=== PATIENT | female | born 1985 | race Caucasian/White ===

== ENCOUNTER → 2018-01-19 15:34 | Outpatient (REF) | payer OTHER, SELFPAY ==
[2018-01-19 18:25] LABS: Basophils % 0.3 % (0.1-2.0); Eosinophils # 0.1 K/mm3 (0.0-0.4); Eosinophils % 0.9 % (0.1-12.0); Hemoglobin 12.9 g/dL (12.2-16.2); Lymphocytes # 2.3 K/mm3 (0.7-4.5); Lymphocytes % 23.8 K/mm3 (10-50); Mean Corpuscular HGB Conc 31.4 g/dL (31.8-35.4); Mean Corpuscular Hemoglobin 28.5 pg (27.0-31.2); Mean Corpuscular Volume 90.7 fl (81-99); Mean Platelet Volume 8.4 fl (7.4-10.4); Monocytes # 0.5 K/mm3 (0.1-1.0); Monocytes % 5.1 % (1.7-9.3); Neutrophils # 6.6 K/mm3 (1.8-7.8); Neutrophils % 69.9 % (37.0-80.0); Platelet Count 277 K/mm3 (142-424); Red Blood Count 4.51 M/mm3 (4.20-5.40); Red Cell Distribution Width 13.5 % (11.5-17.5); White Blood Count 9.5 K/mm3 (4.8-10.8)
[2018-01-21 16:51] LABS: Peripheral Smear Review Scanned Result
[2018-01-21 19:23] LABS: EBV Ab VCA, IgM <36.0 U/mL (0.0-35.9); EBV Nuclear Antigen Ab, IgG 46.6 U/mL (0.0-17.9)
== END ==
LOC: LAB 15:34
PROVIDERS: Visit Provider Physician Assistant
DX: R53.83 Other fatigue (principal); G62.9 Polyneuropathy, unspecified; R59.0 Localized enlarged lymph nodes
CPT/HCPCS: 85025; 86664; 86665

== ENCOUNTER → 2018-09-02 19:35 | Outpatient (CLI) | payer OTHER, SELFPAY ==
[2018-09-02 20:34] LABS: Amphetamine/Metha Screen,Urine Negative ng/mL (<1000); Barbiturates Screen,Urine Negative ng/mL (<200); Benzodiazepines Screen,Urine Negative ng/mL (<200); Cannabinoid Screen,Urine Negative ng/mL (<50); Cocaine Screen,Urine Negative ng/mL (<300); Methadone Screen,Urine Negative ng/mL (<300); Opiate Screen,Urine Positive ng/mL (<300); Phencyclidine Screen,Urine Negative ng/mL (<25)
== END ==
PROVIDERS: Visit Provider Nurse Practitioner Family
DX: Z79.899 Other long term (current) drug therapy (principal)
CPT/HCPCS: 80305

== ENCOUNTER → 2018-11-28 14:58 | Outpatient (CLI) | payer OTHER, SELFPAY ==
[2018-11-28 17:00] LABS: Amphetamine/Metha Screen,Urine Negative ng/mL (<1000); Barbiturates Screen,Urine Negative ng/mL (<200); Benzodiazepines Screen,Urine Negative ng/mL (<200); Cannabinoid Screen,Urine Negative ng/mL (<50); Cocaine Screen,Urine Negative ng/mL (<300); Methadone Screen,Urine Negative ng/mL (<300); Opiate Screen,Urine Negative ng/mL (<300); Phencyclidine Screen,Urine Negative ng/mL (<25)
== END ==
LOC: LAB 14:58 → LAB.DROPOF 15:01
PROVIDERS: Visit Provider Nurse Practitioner Family
DX: Z79.899 Other long term (current) drug therapy (principal)
CPT/HCPCS: 80305

== ENCOUNTER → 2019-02-13 17:21 | Outpatient (CLI) | payer OTHER, SELFPAY ==
[2019-02-13 18:42] LABS: Amphetamine/Metha Screen,Urine Negative ng/mL (<1000); Barbiturates Screen,Urine Negative ng/mL (<200); Benzodiazepines Screen,Urine Negative ng/mL (<200); Cannabinoid Screen,Urine Negative ng/mL (<50); Cocaine Screen,Urine Negative ng/mL (<300); Methadone Screen,Urine Negative ng/mL (<300); Opiate Screen,Urine Negative ng/mL (<300); Phencyclidine Screen,Urine Negative ng/mL (<25)
[2019-02-13 18:59] LABS: Alanine Aminotransferase 34 U/L (12-78); Albumin Level 3.6 gm/dL (3.4-5.0); Albumin/Globulin Ratio 1.1 (1.1-1.8); Alkaline Phosphatase 73 U/L (46-116); Anion Gap 13.4 mEq/L (5-15); Aspartate Amino Transferase 18 U/L (15-37); Bilirubin,Total 0.4 mg/dL (0.2-1.0); Blood Urea Nitrogen 9 mg/dL (7-18); Carbon Dioxide 28 mmol/L (21.0-32.0); Chloride 104 mmol/L (98-107); Chol/HDL Ratio 4.1 (1-3.5); Cholesterol 183 mg/dL (140-200); Creatinine,Serum 0.55 mg/dL (0.55-1.02); Estimated Glomerular Filt Rate 127 ml/min (>60); GFR (African American) 154 ML/MIN (>60); Globulin 3.3 gm/dl (1.3-3.2); Glucose 73 mg/dL (74-106); HDL Cholesterol 45 mg/dL (29-89); LDL Cholesterol 125 mg/dL (0-130); Potassium 4.4 mmoL/L (3.5-5.1); Sodium 141 mmol/L (136-145); Thyroid Stimulating Hormone 0.78 uIU/ml (0.358-3.740); Total Protein,Serum 6.9 gm/dL (6.4-8.2); Triglycerides 66 mg/dL (30-200); VLDL Cholesterol 13 mg/dL (0-40)
[2019-02-13 19:00] LABS: Basophils % 0.5 % (0.1-2.0); Eosinophils # 0.1 K/mm3 (0.0-0.4); Eosinophils % 0.8 % (0.1-12.0); Hematocrit 42.9 % (37.0-47.0); Lymphocytes # 2.6 K/mm3 (0.7-4.5); Lymphocytes % 33.1 % (10-50); Mean Corpuscular HGB Conc 30.4 g/dL (31.8-35.4); Mean Corpuscular Hemoglobin 27.8 pg (27.0-31.2); Mean Corpuscular Volume 91.6 fl (81-99); Mean Platelet Volume 9.1 fl (7.4-10.4); Monocytes # 0.4 K/mm3 (0.1-1.0); Monocytes % 4.7 % (1.7-9.3); Neutrophils # 4.7 K/mm3 (1.8-7.8); Platelet Count 315 K/mm3 (142-424); Red Blood Count 4.68 M/mm3 (4.20-5.40); Red Cell Distribution Width 14.2 % (11.5-17.5); White Blood Count 7.8 K/mm3 (4.8-10.8)
[2019-02-15 17:47] LABS: Vitamin D 25 Hydroxy 33.4 ng/mL (30.0-100.0)
== END ==
PROVIDERS: Visit Provider Nurse Practitioner Family
DX: Z79.899 Other long term (current) drug therapy (principal); G62.9 Polyneuropathy, unspecified; N39.0 Urinary tract infection, site not specified
CPT/HCPCS: 80053; 80061; 80305; 82652; 84436; 84443; 85025; 87086

== ENCOUNTER → 2020-04-03 11:37 | Outpatient (CLI) | payer OTHER, SELFPAY ==
--- NOTE | 2020-04-03 11:44 | XR_ITS ---
PROCEDURE: XR WRIST RT MIN 3V CLINICAL INDICATION: right wrist pain COMPARISON: No exams were available for comparison FINDINGS: No fracture or dislocation. No lytic or blastic change. There is normal mineralization. The joint spaces are well-preserved. No significant degenerative/arthritic changes. No erosive changes evident. Other findings:None. IMPRESSION: No acute findings. Dictated b Dontrell Bess MD 04/03/2020 13:40 Dontrell Bess MD in [place] 04/03/2020 13:40
== END ==
PROVIDERS: PCP Emergency Medicine; Visit Provider Physician Assistant
DX: M25.531 Pain in right wrist (principal)
CPT/HCPCS: 73110

== ENCOUNTER → 2020-04-19 14:45 | Outpatient (CLI) | payer OTHER, SELFPAY ==
--- NOTE | 2020-04-19 14:45 | MR_ITS ---
PROCEDURE: MR WRIST RT WO CON CLINICAL INDICATION: right wrist pain PT. C/P LATERAL RT WRIST PAIN AND EDEMA WITH NO KNOWN INJURY OR TRAUMA. PRIOR RT WRIST X-RAY 04/03/20 COMPARISON: DX XR WRIST RT MIN 3V from 04/03/2020 TECHNIQUE: Routine multiplanar multi echo sequences are performed without gadolinium enhancement. FINDINGS: No abnormal bone marrow signal intensity. No fracture or bone bruise. No bony destructive process. There is normal alignment. No abnormal fluid collections. No obvious ligamentous or tendon abnormalities. Ligamentous abnormalities are not well delineated without intra-articular contrast. No significant degenerative change. No soft tissue masses. IMPRESSION: Unremarkable MRI of the right wrist Dictated by: Dontrell Bess MD 04/22/2020 08:47 Dontrell Bess MD in [facility] 04/22/2020 08:47
== END ==
PROVIDERS: PCP Emergency Medicine; Visit Provider Physician Assistant
DX: M25.531 Pain in right wrist (principal)
CPT/HCPCS: 73221

== ENCOUNTER → 2020-07-03 16:04 | Outpatient (CLI) | payer OTHER, SELFPAY ==
[2020-07-03 17:16] LABS: Basophils % 0.2 % (0.1-2.0); Eosinophils # 0.1 K/mm3 (0.0-0.4); Eosinophils % 0.8 % (0.1-12.0); Hematocrit 40.2 % (37.0-47.0); Hemoglobin 12.2 g/dL (12.2-16.2); Lymphocytes % 34.6 % (10-50); Mean Corpuscular HGB Conc 30.3 g/dL (31.8-35.4); Mean Corpuscular Hemoglobin 27.9 pg (27.0-31.2); Mean Corpuscular Volume 91.8 fl (81-99); Mean Platelet Volume 9.3 fl (7.4-10.4); Monocytes # 0.5 K/mm3 (0.1-1.0); Monocytes % 5.4 % (1.7-9.3); Neutrophils # 5.2 K/mm3 (1.8-7.8); Platelet Count 248 K/mm3 (142-424); Red Blood Count 4.38 M/mm3 (4.20-5.40); Red Cell Distribution Width 13.5 % (11.5-17.5); White Blood Count 8.8 K/mm3 (4.8-10.8)
[2020-07-03 17:24] LABS: Alanine Aminotransferase 20 U/L (12-78); Albumin Level 3.7 g/dl (3.5-5.0); Albumin/Globulin Ratio 1.3 (1.1-1.8); Alkaline Phosphatase 61 U/L (38-126); Anion Gap 9.6 mEq/L (5-15); Aspartate Amino Transferase 25 U/L (14-36); Bilirubin,Total 0.3 mg/dl (0.2-1.3); Blood Urea Nitrogen 10 mg/dl (7-17); Calcium 9.2 mg/dl (8.4-10.2); Carbon Dioxide 28 mmol/L (22.0-30.0); Chloride 104 mmol/L (98-107); Chol/HDL Ratio 3.1 (1-3.5); Cholesterol 173 mg/dl (140-200); Estimated Glomerular Filt Rate 183 ml/min (>60); GFR (African American) 221 ML/MIN (>60); Globulin 2.8 g/dL (1.3-3.2); Glucose 89 mg/dl (74-100); HDL Cholesterol 56 mg/dl (40-60); Potassium 3.6 mmoL/L (3.5-5.1); Sodium 138 mmol/L (136-145); Total Protein,Serum 6.5 g/dl (6.3-8.2); Triglycerides 73 mg/dl (30-150); VLDL Cholesterol 15 mg/dL (0-40)
[2020-07-03 17:35] LABS: Direct LDL Cholesterol 101.49 mg/dL (100-129)
[2020-07-03 17:42] LABS: Free T4 (Free Thyroxine) 1.03 ng/dl (0.78-2.19)
[2020-07-03 17:43] LABS: 25-OH Vitamin D, Total 29.3 ng/mL (30-100)
[2020-07-03 17:56] LABS: Thyroid Stimulating Hormone 0.92 uIU/mL (0.465-4.68)
[2020-07-03 18:01] LABS: Hemoglobin A1C 5.4 % (4.0-6.0)
[2020-07-03 18:14] LABS: Vitamin B12 324 pg/mL (239-931)
[2020-07-03 22:49] LABS: Iron 55 ug/dL (37-170)
== END ==
PROVIDERS: Visit Provider Physician Assistant
DX: Z00.00 Encounter for general adult medical examination without abnormal findings (principal); G62.9 Polyneuropathy, unspecified; E55.9 Vitamin D deficiency, unspecified; Z79.899 Other long term (current) drug therapy
CPT/HCPCS: 80053; 80061; 82306; 82607; 83036; 83540; 84439; 84443; 85025

== ENCOUNTER → 2020-09-25 13:58 | Outpatient (CLI) | payer OTHER, SELFPAY ==
[2020-09-25 14:39] LABS: Barbiturates Screen,Urine Negative ng/ml (<200)
[2020-09-25 14:40] LABS: Benzodiazepines Screen,Urine Negative ng/ml (<200)
[2020-09-25 14:41] LABS: Amphetamine/Metha Screen,Urine Negative ng/ml (<1000); Cannabinoid Screen,Urine Negative ng/ml (<50)
[2020-09-25 14:42] LABS: Cocaine Screen,Urine Negative ng/ml (<300)
[2020-09-25 14:43] LABS: Methadone Screen,Urine Negative ng/ml (<300); Opiate Screen,Urine Negative ng/ml (<300)
[2020-09-25 14:44] LABS: Phencyclidine Screen,Urine Negative ng/ml (<25)
== END ==
PROVIDERS: Visit Provider Physician Assistant
DX: Z79.899 Other long term (current) drug therapy (principal)
CPT/HCPCS: 80305

== ENCOUNTER → 2021-06-03 14:04 | Outpatient (CLI) | payer OTHER, SELFPAY ==
[2021-06-03 14:18] LABS: Basophils # 0.1 K/mm3 (0-0.2); Basophils % 0.6 % (0.1-2.0); Eosinophils % 0.5 % (0.1-12.0); Hematocrit 41.3 % (37.0-47.0); Hemoglobin 13.3 g/dL (12.2-16.2); Lymphocytes # 2.7 K/mm3 (0.7-4.5); Lymphocytes % 28.9 % (10-50); Mean Corpuscular HGB Conc 32.1 g/dL (31.8-35.4); Mean Corpuscular Hemoglobin 29.6 pg (27.0-31.2); Mean Corpuscular Volume 92.2 fl (81-99); Mean Platelet Volume 9.9 fl (7.4-10.4); Monocytes # 0.5 K/mm3 (0.1-1.0); Neutrophils # 6.1 K/mm3 (1.8-7.8); Neutrophils % 65.1 % (37.0-80.0); Platelet Count 236 K/mm3 (142-424); Red Blood Count 4.48 M/mm3 (4.20-5.40); Red Cell Distribution Width 14.2 % (11.5-17.5); White Blood Count 9.3 K/mm3 (4.8-10.8)
[2021-06-03 16:34] LABS: Alanine Aminotransferase 19 U/L (12-78); Albumin Level 3.9 g/dl (3.5-5.0); Albumin/Globulin Ratio 1.4 (1.1-1.8); Alkaline Phosphatase 51 U/L (38-126); Anion Gap 9.7 mEq/L (5-15); Aspartate Amino Transferase 27 U/L (14-36); Bilirubin,Total 0.5 mg/dl (0.2-1.3); Blood Urea Nitrogen 10 mg/dl (7-17); Carbon Dioxide 27 mmol/L (22.0-30.0); Chloride 107 mmol/L (98-107); Chol/HDL Ratio 3.8 (1-3.5); Cholesterol 184 mg/dl (140-200); Estimated Glomerular Filt Rate 182 ml/min (>60); GFR (African American) 220 ML/MIN (>60); Globulin 2.8 g/dL (1.3-3.2); Glucose 51 mg/dl (74-100); HDL Cholesterol 49 mg/dl (40-60); Iron 97 ug/dL (37-170); Potassium 3.7 mmoL/L (3.5-5.1); Sodium 140 mmol/L (136-145); Total Protein,Serum 6.7 g/dl (6.3-8.2); Triglycerides 83 mg/dl (30-150); VLDL Cholesterol 17 mg/dL (0-40)
[2021-06-03 16:46] LABS: Direct LDL Cholesterol 101.49 mg/dL (100-129)
[2021-06-03 16:49] LABS: 25-OH Vitamin D, Total 40.2 ng/mL (30-100)
[2021-06-03 16:51] LABS: T4 (Thyroxine) 8.4 ug/dl (5.53-11.0)
[2021-06-03 17:05] LABS: Thyroid Stimulating Hormone 1.04 uIU/mL (0.465-4.68)
[2021-06-03 17:23] LABS: Vitamin B12 377 pg/mL (239-931)
[2021-06-03 17:38] LABS: Total Iron Binding Capacity 295 ug/dL (265-497)
[2021-06-03 19:04] LABS: Amphetamine/Metha Screen,Urine Negative ng/ml (<1000)
[2021-06-03 19:06] LABS: Barbiturates Screen,Urine Negative ng/ml (<200)
[2021-06-03 19:07] LABS: Benzodiazepines Screen,Urine Negative ng/ml (<200); Cannabinoid Screen,Urine Negative ng/ml (<50)
[2021-06-03 19:08] LABS: Cocaine Screen,Urine Negative ng/ml (<300); Methadone Screen,Urine Negative ng/ml (<300)
[2021-06-03 19:09] LABS: Opiate Screen,Urine Negative ng/ml (<300)
[2021-06-03 19:10] LABS: Phencyclidine Screen,Urine Negative ng/ml (<25)
== END ==
PROVIDERS: Visit Provider Physician Assistant
DX: F32.9 Major depressive disorder, single episode, unspecified (principal); G25.81 Restless legs syndrome; G62.9 Polyneuropathy, unspecified; M54.9 Dorsalgia, unspecified
CPT/HCPCS: 80053; 80061; 80305; 82306; 82607; 83540; 83550; 84436; 84443; 85025

== ENCOUNTER → 2022-01-12 13:21 | Outpatient (CLI) | payer OTHER, SELFPAY | PROVIDERS: PCP Physician Assistant; Visit Provider Physician Assistant | DX: R39.9 Unspecified symptoms and signs involving the genitourinary system (principal) | CPT/HCPCS: 87086 ==

== ENCOUNTER → 2022-02-20 07:12 | Outpatient (CLI) | payer OTHER, SELFPAY ==
--- NOTE | 2022-02-20 07:16 | CT_ITS ---
FINAL REPORT TECHNIQUE: Axial images were obtained from the lung apex to the mid abdomen by computed tomography. Coronal reformatted images were obtained. This study was performed with techniques to keep radiation doses as low as reasonably achievable, (ALARA). Individualized dose reduction techniques using automated exposure control or adjustment of mA and/or kV according to the patient''s size were employed. CLINICAL HISTORY: hemoptysis FOR 3 WEEKS FINDINGS: There are borderline in size axillary nodes favored to be reactive. There is no hilar or mediastinal adenopathy. Heart size is normal. There is no pericardial or pleural effusion. Limited images of the upper abdomen are unremarkable. There are mild bibasilar ground-glass opacities that may represent edema or alveolitis. There is mild bibasilar atelectasis or scarring. IMPRESSION: Mild bibasilar ground-glass opacities that may represent edema or alveolitis. Mild bibasilar atelectasis or scarring. Reviewed, Interpreted and Dictated by Reyes Zapata III, MD Transcribed by Shwetha Page Authenticated and [facility]
== END ==
PROVIDERS: PCP Emergency Medicine; Visit Provider Physician Assistant
DX: R04.2 Hemoptysis (principal); F17.200 Nicotine dependence, unspecified, uncomplicated
CPT/HCPCS: 71250

== ENCOUNTER → 2022-07-13 14:04 | Outpatient (CLI) | payer OTHER, SELFPAY ==
[2022-07-13 17:39] LABS: Adenovirus,PCR Not Detected (NotDetected); Bordetella Pertussis Not Detected (NotDetected); Chlamydophila Pneumoniae, PCR Not Detected (NotDetected); Coronavirus 19, PCR Not Detected (NotDetected); Coronavirus 229E Not Detected (NotDetected); Coronavirus NL63 Not Detected (NotDetected); Coronavirus OC43 Not Detected (NotDetected); Coronovirus HKU1,PCR Not Detected (NotDetected); Human Metapneumovirus Not Detected (NotDetected); Influenza A, PCR Not Detected (NotDetected); Influenza AH1, 2009 Not Detected (NotDetected); Influenza AH1, PCR Not Detected (NotDetected); Influenza AH3,PCR Not Detected (NotDetected); Influenza B, PCR Not Detected (NotDetected); Mycoplasma Pneumoniae, PCR Not Detected (NotDetected); Parainfluenza 1, PCR Not Detected (NotDetected); Parainfluenza 2, PCR Not Detected (NotDetected); Parainfluenza 3, PCR Not Detected (NotDetected); Parainfluenza 4, PCR Not Detected (NotDetected); Respiratory Syncytial Virus Not Detected (NotDetected); Rhinovirus/Enterovirus Not Detected (NotDetected)
== END ==
PROVIDERS: PCP Physician Assistant; Visit Provider Physician Assistant
DX: J02.9 Acute pharyngitis, unspecified (principal); R05.9 Cough, unspecified; R09.81 Nasal congestion
CPT/HCPCS: 87581; 87632; 87798; C9803; U0003; U0005

== ENCOUNTER → 2022-11-03 23:51 | Outpatient (CLI) | payer OTHER, SELFPAY | PROVIDERS: PCP Physician Assistant; Visit Provider Physician Assistant | DX: N39.0 Urinary tract infection, site not specified (principal) | CPT/HCPCS: 87086 ==

== ENCOUNTER 2023-11-15 13:26 | Outpatient (CLI) | payer OTHER, SELFPAY | END 2023-11-15 23:59 | LOC: LAB.DROPOF 13:27 | PROVIDERS: PCP Physician Assistant; Visit Provider Physician Assistant | DX: J02.9 Acute pharyngitis, unspecified (principal) | CPT/HCPCS: 87070 ==

== ENCOUNTER 2024-01-13 11:47 | Outpatient (CLI) | payer OTHER, SELFPAY ==
[2024-01-13 18:15] LABS: Alanine Aminotransferase 20 U/L (12-78); Albumin Level 3.4 g/dl (3.5-5.0); Albumin/Globulin Ratio 1.3 (1.1-1.8); Alkaline Phosphatase 58 U/L (38-126); Anion Gap 7.7 mEq/L (5-15); Aspartate Amino Transferase 25 U/L (14-36); Bilirubin,Total 0.3 mg/dl (0.2-1.3); Blood Urea Nitrogen 10 mg/dl (7-17); Calcium 8.9 mg/dl (8.4-10.2); Carbon Dioxide 30 mmol/L (22.0-30.0); Chloride 106 mmol/L (98-107); Chol/HDL Ratio 3.2 (1-3.5); Cholesterol 175 mg/dl (140-200); Estimated Glomerular Filt Rate 112 ml/min (>60); GFR (African American) 135 ML/MIN (>60); Globulin 2.6 g/dL (1.3-3.2); Glucose 64 mg/dl (74-100); HDL Cholesterol 54 mg/dl (40-60); Potassium 3.7 mmoL/L (3.5-5.1); Sodium 140 mmol/L (136-145); Triglycerides 107 mg/dl (30-150); VLDL Cholesterol 21 mg/dL (0-40)
[2024-01-13 18:23] LABS: Basophils # 0.1 K/mm3 (0-0.2); Basophils % 0.7 % (0.1-2.0); Eosinophils # 0.1 K/mm3 (0.0-0.4); Eosinophils % 0.7 % (0.1-12.0); Hematocrit 43.4 % (37.0-47.0); Hemoglobin 13.5 g/dL (12.2-16.2); Lymphocytes # 2.1 K/mm3 (0.7-4.5); Mean Corpuscular Volume 93.7 fl (81-99); Monocytes # 0.6 K/mm3 (0.1-1.0); Monocytes % 7.1 % (1.7-9.3); Neutrophils # 5.3 K/mm3 (1.8-7.8); Neutrophils % 65.4 % (37.0-80.0); Platelet Count 205 K/mm3 (142-424); Red Blood Count 4.63 M/mm3 (4.20-5.40); Red Cell Distribution Width 14.5 % (11.5-17.5)
[2024-01-13 18:26] LABS: Direct LDL Cholesterol 95.99 mg/dL (100-129)
[2024-01-13 18:35] LABS: 25-OH Vitamin D, Total 23.6 ng/mL (30-100)
[2024-01-13 18:48] LABS: Thyroid Stimulating Hormone 0.65 uIU/mL (0.465-4.68)
[2024-01-15 09:13] LABS: HBsAg Screen Negative (Negative); HCV Ab Non Reactive (Non Reactive); Hep A Ab, IGM Negative (Negative); Hep B Core Ab, IgM Negative (Negative)
== END 2024-01-13 23:59 | disposition home or self-care (01) ==
LOC: LAB.DROPOF 01-14 11:47
PROVIDERS: PCP Physician Assistant; Visit Provider Physician Assistant
DX: M54.9 Dorsalgia, unspecified (principal); E55.9 Vitamin D deficiency, unspecified; Z79.899 Other long term (current) drug therapy
CPT/HCPCS: 80053; 80061; 80074; 82306; 84443; 85025; 87086

== ENCOUNTER 2024-06-07 13:00 | Outpatient (CLI) | payer OTHER, SELFPAY ==
--- NOTE | 2024-06-07 13:01 | MR_ITS ---
FINAL REPORT CLINICAL HISTORY: Lower back pain FINDINGS: Multiplanar MR imaging of the lumbar spine was performed without and with contrast. On the sagittal T2-weighted images, there is abnormal decreased signal at the L4-5 and L5-S1 levels. The vertebral alignment is normal. There is moderate loss of height of L5-S1. The conus is seen at approximately the L1 level and has an unremarkable appearance. L1-2: There is no significant disc bulge, canal stenosis, or neuroforaminal narrowing. L2-3: There is no significant disc bulge, canal stenosis, or neuroforaminal narrowing. L3-4: There is no significant disc bulge, canal stenosis, or neuroforaminal narrowing. L4-5: There is a mild to moderate diffuse disc bulge with mild bilateral neuroforaminal narrowing. L5-S1: There is a mild diffuse disc bulge with mild bilateral neuroforaminal narrowing. No abnormal contrast enhancement is identified. IMPRESSION: Diffuse disc bulge at L4-5 and L5-S1 with mild bilateral neuroforaminal narrowing. No acute osseous abnormality. No abnormal contrast-enhancement. Reviewed, Interpreted and Dictated by Federico Paredes MD Transcribed by Regina Jones Authenticated and [facility]
--- NOTE | 2024-06-07 13:01 | MR_ITS ---
FINAL REPORT CLINICAL HISTORY: Thoracic back pain FINDINGS: Multiplanar MR imaging of the thoracic spine was performed without and with contrast. On the sagittal T2-weighted images, there is abnormal decreased signal throughout the thoracic discs. The vertebrae are of normal height. There is a mild thoracic scoliosis convex to the right measuring about 10 degrees. The thoracic cord demonstrates normal signal and configuration. There is no evidence of significant canal stenosis. On the axial images, there is no significant disc bulge or protrusion. There is no marrow edema. On the postcontrast images, no abnormal contrast enhancement is identified. IMPRESSION: No significant disc bulge or protrusion. No significant canal stenosis. No abnormal contrast enhancement identified. Reviewed, Interpreted and Dictated by Federico Paredes MD Transcribed by Regina Jones Authenticated and [facility]
[2024-06-07] MEDS: SODIUM CHLORIDE 0.9% 10ML SYR (RAD ONLY) 10 ML IV (15:43)
[2024-06-07] MEDS: GADOTERIDOL INJ 20ML SYRINGE 14 ML IV (15:43)
== END 2024-06-07 23:59 | disposition home or self-care (01) ==
LOC: RAD 13:01
PROVIDERS: PCP Family Medicine; Visit Provider Family Medicine
DX: M54.9 Dorsalgia, unspecified (principal); G25.81 Restless legs syndrome; G62.9 Polyneuropathy, unspecified
CPT/HCPCS: 72157; 72158; A9576

== ENCOUNTER 2024-10-30 09:23 | Outpatient (CLI) | payer OTHER, SELFPAY | END 2024-10-30 23:59 | disposition home or self-care (01) | LOC: LAB.DROPOF 10-31 09:56 | PROVIDERS: PCP Family Medicine; Visit Provider Family Medicine | DX: N89.8 Other specified noninflammatory disorders of vagina (principal) | CPT/HCPCS: 87086; 87088; 87186; 87210 ==

== ENCOUNTER 2024-11-29 18:28 | Outpatient (CLI) | payer OTHER, SELFPAY ==
[2024-11-29 19:05] LABS: Microscopic, Urine URINE MICROSCOPIC (MICROSCOPIC)
[2024-11-29 19:24] LABS: Appearance,Urine CLEAR (Clear); Bilirubin,Urine Negative (Negative); Blood, Urine Negative (Negative); Color,Urine YELLOW (Yellow); Glucose,Urine (UA) Negative (Negative); Ketones,Urine Negative (Negative); Leukocyte Esterase,Urine Negative (Negative); Nitrate,Urine Negative (Negative); Protein,Urine 1+ (Negative); Specific Gravity, Urine >= 1.030 (1.005-1.030); Urobilinogen,Urine 0.2 EU/dl (0.2)
[2024-11-29 20:56] LABS: Bacteria,Urine 2+ /lpf; Mucus,Urine 4+ /lpf; Squamous Epithelial Cell,Urine 20-50 #/hpf (0-5); Yeast,Urine 1+ /lpf
== END 2024-11-29 23:59 | disposition home or self-care (01) ==
LOC: LAB.DROPOF 18:29
PROVIDERS: PCP Family Medicine; Visit Provider Family Medicine
DX: N39.0 Urinary tract infection, site not specified (principal)
CPT/HCPCS: 81001; 87086

== ENCOUNTER 2025-02-26 10:15 | Outpatient (CLI) | payer OTHER, SELFPAY ==
--- OUTSIDE RECORDS SUMMARY | 2024-10-26 06:30 | XMS_ITS ---
Author Organization [facility] Address [address] [id number] Care Team Providers Care Service Station Cashier Name Role Phone FATEMEH COHEN Primary Care Provider KARIS JOSEPH Unavailable [phone] REASON FOR VISIT PV, DUE PAP, ALCOHOL, PHQ9, TOBACCO Encounters Encounter Location Date Provider Diagnosis [facility] [address] [id number] 10/26/2024 KARIS JOSEPH Plan Of Treatment No Information Progress Notes * Kianna HELMDOB:1985 (39 yo F)Acc No.[id number]:10/26/2024 Progress Notes Patient: Kianna COMBS Provider: MELO FNP-C :1985 A ge:39 Y S ex:Female Date:10/26/2024 Address:[address], [place] Pcp:FATEMEH COHEN Subjective: * Chief Complaints: * 1 . PV, DUE PAP, ALCOHOL, PHQ9, TOBACCO. * Medical History: Objective: * Vitals: Assessment: Plan: * Treatment: * Images: * Electronic signature of TJ JOSEPH APRN on 02/27/2025 at 07:38 AM EDT Sign off status: Pending * Provider: MELO FNP-C Date: 0 10/26/2024 Generated for Norman duran/Amairani/Juan on: 0 02/27/2025 07:38 AM EDT
[2025-02-26 19:41] LABS: Hematocrit 42.7 % (37.0-47.0); Hemoglobin 13.5 g/dL (12.2-16.2); Immature Granulocytes % 0.2 %; Mean Corpuscular HGB Conc 31.6 g/dL (31.8-35.4); Mean Corpuscular Hemoglobin 28.7 pg (27.0-31.2); Mean Corpuscular Volume 90.7 fl (81-99); Nucleated Red Blood Cells % 0 %; Platelet Count 249 K/mm3 (142-424); Red Blood Count 4.71 M/mm3 (4.20-5.40); Red Cell Distribution Width-SD 48.9 fL; White Blood Count 8.3 K/mm3 (4.8-10.8)
[2025-02-26 20:24] LABS: Alanine Aminotransferase 16 U/L (12-78); Albumin Level 4.2 g/dl (3.5-5.0); Albumin/Globulin Ratio 1.7 (1.1-1.8); Alkaline Phosphatase 57 U/L (38-126); Anion Gap 16.5 mEq/L (5-15); Aspartate Amino Transferase 19 U/L (14-36); Bilirubin,Total 0.6 mg/dl (0.2-1.3); Blood Urea Nitrogen 11 mg/dl (7-17); Calcium 8.5 mg/dl (8.4-10.2); Carbon Dioxide 28 mmol/L (22.0-30.0); Chloride 100 mmol/L (98-107); Cholesterol 213 mg/dl (140-200); Creatinine,Serum 0.50 mg/dl (0.52-1.04); Estimated Glomerular Filt Rate 137 ml/min (>60); GFR (African American) 166 ML/MIN (>60); Globulin 2.5 g/dL (1.3-3.2); Glucose 57 mg/dl (74-100); HDL Cholesterol 46 mg/dl (40-60); Potassium 3.5 mmoL/L (3.5-5.1); Sodium 141 mmol/L (136-145); Total Protein,Serum 6.7 g/dl (6.3-8.2); Triglycerides 90 mg/dl (30-150)
[2025-02-26 20:26] LABS: 25-OH Vitamin D, Total 16.4 ng/mL (30-100)
[2025-02-26 21:01] LABS: Hepatitis C Ab Qual. W/ RFX NEGATIVE (Negative); Thyroid Stimulating Hormone 1.01 uIU/mL (0.465-4.68)
[2025-02-26 21:34] LABS: Hemoglobin A1C 6.2 % (4.0-6.0)
--- OUTSIDE RECORDS SUMMARY | 2025-02-27 07:38 | XMS_ITS | Patient Health Record ---
Author Organization [facility] Address [address] [place], [place] [id number] Care Team Providers Care Automobile Mechanic Radiator Name Role Phone FATEMEH COHEN Primary Care Provider [phone] KARIS JOSEPH Unavailable [phone] Allergies Allergen (clinical drug ingredient) Drug/Non Drug Allergy documented on EMR Reaction Allergy Type Onset Date Status Substance with sulfonamide structure and antibacterial mechanism of action (substance) Sulfa Antibiotics Unknown Drug Allergy Active Results Component Value Reference Range Notes TSH W/REFLEX TO FT4 Reviewed date:09/18/2024 08:54:50 AM Interpretation: Performing Lab:[facility] [id number], CyrusOneYzqgUE[address] Kilo Jon Notes/Report: FASTING FASTING FASTING FASTING FASTING TSH W/REFLEX TO FT4 1.22 Reference Range > or = 20 Years 0.40-4.50 Ranges First trimester 0.26-2.66 Second trimester 0.55-2.73 Third trimester 0.43-2.91 HEMOGLOBIN A1c Reviewed date:09/18/2024 08:54:40 AM Interpretation: Performing Lab:[facility], [address] [id number] Kilo Jon Notes/Report: FASTING FASTING FASTING FASTING FASTING HEMOGLOBIN A1c 5.4 <5.7 % of total Hgb For the purpose of screening for the presence of diabetes: <5.7% Consistent with the absence of diabetes 5.7-6.4% Consistent with increased risk for diabetes (prediabetes) > or =6.5% Consistent with diabetes This assay result is consistent with a decreased risk of diabetes. Currently, no consensus exists regarding use of hemoglobin A1c for diagnosis of diabetes in children. According to [place] Diabetes Association (ADA) guidelines, hemoglobin A1c <7.0% represents optimal control in non- diabetic patients. Different metrics may apply to specific patient populations. Standards of Medical Care in Diabetes(ADA). NO COLLECTION DATE RECEIVED. WE HAVE USED THE DATE THE SPECIMEN WAS RECEIVED BY THIS LABORATORY THE COLLECTION DATE. IF THIS IS INCORRECT, PLEASE CONTACT CLIENT SERVICES. PHONE NUMBER: [phone] CBC (INCLUDES DIFF/PLT) Reviewed date:09/18/2024 08:54:40 AM Interpretation: Performing Lab:[facility], [id number] Kilo Jon Notes/Report: FASTING FASTING FASTING FASTING FASTING WHITE BLOOD CELL COUNT 8.4 3.8-10.8 Thousand/ uL RED BLOOD CELL COUNT 4.09 3.80-5.10 Million/uL HEMOGLOBIN 11.9 11.7-15.5 g/dL HEMATOCRIT 37.1 35.0-45.0 % MCV 90.7 80.0-100.0 fL MCH 29.1 27.0-33.0 pg MCHC 32.1 32.0-36.0 g/dL For adults, a slight decrease in the calculated MCHC value (in the range of 30 to 32 g/dL) is most likely not clinically significant; however, it should be interpreted with caution in correlation with other red cell parameters and the patient's clinical condition. RDW 13.1 11.0-15.0 % PLATELET COUNT 251 140-400 Thousand/uL MPV 11.0 7.5-12.5 fL ABSOLUTE NEUTROPHILS 4864 5921-1917 cells/uL ABSOLUTE LYMPHOCYTES 2965 850-3900 cells/uL ABSOLUTE MONOCYTES 479 200-950 cells/uL ABSOLUTE EOSINOPHILS 50 15-500 cells/uL ABSOLUTE BASOPHILS 42 0-200 cells/uL NEUTROPHILS 57.9 LYMPHOCYTES 35.3 MONOCYTES 5.7 EOSINOPHILS 0.6 BASOPHILS 0.5 COMPREHENSIVE METABOLIC PANE L Reviewed date:09/18/2024 08:54:50 AM Interpretation: Performing Lab:[facility], [id number] Kilo Jon Notes/Report: FASTING FASTING FASTING FASTING FASTING GLUCOSE 87 65-99 mg/dL Fasting reference interval UREA NITROGEN (BUN) 11 7-25 mg/dL CREATININE 0.51 0.50-0.97 mg/dL EGFR 122 > OR = 60 mL/min/1.73m2 BUN/CREATININE RATIO SEE NOTE: 6-22 (calc) Not Reported: BUN and Creatinine are within reference range. SODIUM 137 135-146 mmol/L POTASSIUM 3.7 3.5-5.3 mmol/L CHLORIDE 103 98-110 mmol/L CARBON DIOXIDE 25 20-32 mmol/L CALCIUM 8.9 8.6-10.2 mg/dL PROTEIN, TOTAL 6.6 6.1-8.1 g/dL ALBUMIN 4.1 3.6-5.1 g/dL GLOBULIN 2.5 1.9-3.7 g/dL (calc) ALBUMIN/GLOBULIN RATIO 1.6 1.0-2.5 (calc) BILIRUBIN, TOTAL 0.3 0.2-1.2 mg/dL ALKALINE PHOSPHATASE 61 31-125 U/L AST 17 10-30 U/L ALT 20 6-29 U/L LIPID PANEL WITH REFLEX TO D IRECT LDL Reviewed date:09/18/2024 08:54:40 AM Interpretation: Performing Lab:[facility] [address] [facility] Kilo Jon Notes/Report: FASTING FASTING FASTING FASTING FASTING CHOLESTEROL, TOTAL 178 <200 mg/dL HDL CHOLESTEROL 53 > OR = 50 mg/dL TRIGLYCERIDES 83 <150 mg/dL LDL-CHOLESTEROL 108 Reference range: <100 Desirable range <100 mg/dL for primary prevention; <70 mg/dL for patients with CHD or diabetic patients with > or = 2 CHD risk factors. LDL-C is now calculated using the Perez calculation, which is a validated novel method providing better accuracy than the Friedewald equation in the estimation of LDL-C. Yemi DOUGLASS et al. CRISTIANA. 2013;310(19): 3237-4554 (http://[employer].Troodon/faq/IGZ506) CHOL/HDLC RATIO 3.4 <5.0 (calc) NON HDL CHOLESTEROL 125 <130 mg/dL (calc) For patients with diabetes plus 1 major ASCVD risk factor, treating to a non-HDL-C goal of <100 mg/dL (LDL-C of <70 mg/dL) is considered a therapeutic option. Strep A, Rapid Reviewed date:09/07/2024 02:26:24 PM Interpretation: Performing Lab: Notes/Report: Strep A pos Drug Monitoring, Panel 4, wi th Confirmation, Urine Reviewed date:09/04/2024 11:07:38 AM Interpretation: Performing Lab:[facility], [facility] [address], [facility]cuuKR[address] Kilo Jon Notes/Report: 0 Amphetamines NEGATIVE <500 ng/mL Barbiturates NEGATIVE <300 ng/mL Benzodiazepines NEGATIVE <100 ng/mL Cocaine Metabolite NEGATIVE <150 ng/mL Methadone Metabolite NEGATIVE <100 ng/mL Opiates NEGATIVE <100 ng/mL Oxycodone NEGATIVE <100 ng/mL Phencyclidine NEGATIVE <25 ng/mL Creatinine 160.0 > or = 20.0 mg/dL pH 5.8 4.5-9.0 Oxidant NEGATIVE <200 mcg/mL Notes and Comments This drug testing is for medical treatment only. Analysis was performed as non-forensic testing and these results should be used only by healthcare providers to render diagnosis or treatment, or to monitor progress of medical conditions. Healthcare Providers needing Interpretation assistance, please contact us at [phone] ( ) M-F, 8am to 10pm EST Reason For Referral No Information Medications Medication SIG (Take, Route, Frequency, Duration) Notes Start Date End Date Status methylPREDNISolone 4 MG as directed Orally 025 Active Cyclobenzaprine HCl 7.5 MG 1 tablet at b edtime Orally Once a day; Duration: 30 days 08/17/2024 Active DM-guaiFENesin ER 60-1200 MG 1 tablet as needed Orally every 12 hrs; Duration: 14 days 09/14/2024 Active Cetirizine HCl 10 MG 1 tablet Orally Onc e a day; Duration: 30 days Active Fluticasone Propionate 50 MCG/ACT Nasal; Duration: 60 Days Active Gabapentin 800 MG 1 tablet Orally thre e times daily; Duration: 90 days Active Buprenorphine HCl-Naloxone H Cl 8-2 MG 1 tablet under the tongue and allow to dissolve Sublingual twice daily; Duration: 28 days Active Polymyxin B-Trimethoprim 14535-6.1 UNIT/ML 1 drop into affected eye Ophthalmic Four times a day; Duration: 5 days 08/28/2024 Active Ibuprofen 600 MG 1 tablet with food o r milk as needed Orally Three times a day; Duration: 10 days Active Social History Tobacco Use: Social History Observation Description Date Details (start date - stop date) Current Smoker NA - NA AUDIT-C (Standard) Question Answer Notes Did you have a drink containing alcohol in the p ast year? No Points 0 Interpretation Negative Tobacco Control (Standard) Question Answer Notes Tobacco use: Current smoker How many cigarettes a day do you smoke? 6-10 Section Notes: Triaged by Helen Fulton Triaged by Helen Fulton Triaged by Helen Fulton Problems Problem Type SNOMED Code ICD Code Onset Dates Problem Status W/U Status Risk Notes Problem Chronic pain (36446041) Other chronic pain (G89.29) Active confirmed Problem Tension headache (291658041) Tension headache (G44.209) Active confirmed Problem Anemia, unspecified type (D64.9) Active confirmed Vital Signs Heart Rate 64 /min 09/14/2024 Triage by Carla any Helm Temperature 98 degrees Fahrenheit 09/14/2024 Triage by Taylor Helm Respiratory Rate 20 /min 09/14/2024 Triage by August hammondy Helm Oximetry 98 % 09/14/2024 Triage by Carla any Helm Blood pressure diastolic 70 mm Hg 09/14/2024 Tri age by Taylor Helm Weight-kg 69.58 kg 09/14/2024 Triage by Carla any Helm Height 66'' in 09/14/2024 Triage by Carla any Helm Blood pressure systolic 112 mm Hg 09/14/2024 Tria ge by Taylor Helm Weight 153.4 lbs 09/14/2024 Triage by Carla any Helm BMI 24.76 kg/m2 09/14/2024 Triage by Carla any Helm Encounters Encounter Location Date Provider Diagnosis [facility] [address] [id number] 08/17/2024 KARIS JOSEPH Encounter to [facility] Z76.89 ; High risk medication use Z79.899 ; Tension headache G44.209 ; Other chronic pain G89.29 and BMI 23.0-23.9, adult Z68.23 [facility] [address] [id number] 08/28/2024 KARIS JOSEPH Acute conjunctivitis of left eye, unspecified acute conjunctivitis type H10.[address] [id number] 09/07/2024 KARIS JOSEPH Acute streptococcal pharyngitis J02.0 and BMI 24.0-24.9, adult Z68.[address] [id number] 09/14/2024 KARIS JOSEPH Upper respiratory tr act infection, unspecified type J06.9 ; Anemia, unspecified type D64.9 ; Weight loss R63.4 ; Screening for diabetes mellitus Z13.1 ; Screening for lipid disorders Z13.220 and BMI 24.0-24.9, adult Z68.24 Assessments Encounter Date Diagnosis (ICD Code) Assessment Notes Treatment Notes Treatment Clinical Notes Section Notes 08/17/2024 High risk medication use (ICD-10 - Z79.899) 08/17/2024 Encounter to establish care (ICD-10 - Z76.89) 08/28/2024 Acute conjunctivitis of left eye, unspecified acute conjunctivitis type (ICD-10 - H10.32) Robert: Care Instructions material was published 09/07/2024 Acute streptococcal pharyngitis (ICD-10 - J02.0) You need to take the full course of antibiotics. Strep throat can spread to others until 24 hours after you begin taking antibiotics. During this time, avoid contact with other people at work, school or home, especially infants and children. Do not sneeze or cough on others, and wash hands often. Get new toothbrush in 3 days of starting antibiotic to avoid re-infecting yourself. 09/07/2024 BMI 24.0-24.9, adult (ICD-10 - Z68.24) 09/14/2024 Anemia, unspecified type (ICD-10 - D64.9) CBC drawn today 09/14/2024 Upper respiratory tract infection, unspecified type (ICD-10 - J06.9) Patient was advised to take the prescribed Meds as instructed, minimize physical activity in the next 2-3 days, and increase oral fluid intake avoiding cold food or beverages. Patient may take OTC Acetaminophen as directed without exceeding 3 gm/24 h including any other Meds containing Acetaminophen. Patient was instructed to return to our clinic or seek immediate medical care if symptoms worsen or continue to spike fever in the next 48-72 h for re-evaluation 09/14/2024 Weight loss (ICD-10 - R63.4) CMP and TSH drawn today 08/17/2024 Tension headache (ICD-10 - G44.209) Patient was advised to avoid taking > 3 gm of Acetaminophen/day , including all other prescribed or OTC Acetaminophen containing Meds. Patient to seek immediate medical care if Headache gets worse or develops any blurred vision, localized weakness, or numbness for further evaluation 09/14/2024 Screening for diabetes mellitus (ICD-10 - Z13.1) A1C drawn 08/17/2024 Other chronic pain (ICD-10 - G89.29) -I discussed with the patient her prescribed controlled substance Med, Gabapentin, patient stated that she has been taking her controlled Med as instructed, which enables her to function/tolerate her chronic neuropathic pain. Alternative non-controlled Med (including NSAIDs & Acetaminophen) had failed in the past to control her symptoms or improves her functional status. -ELFEGO was reviewed at least once within 90 days period, and report was filed in her medical record. -After physical exam was performed today, treatment plan was discussed, and patient was counseled about the potential adverse effects and risks of the prescribed controlled substances; including but not limited to, developing dependence or tolerance while taking Meds, or withdrawal symptoms if she discontinues her Med without tapering down. The patient understood all above and would like to continue her Med. -The patient has no suicidal ideation, no previous history of suicidal attempts reported to our clinic 08/17/2024 BMI 23.0-23.9, adult (ICD-10 - Z68.23) 09/14/2024 Screening for lipid disorders (ICD-10 - Z13.220) Lipid panel drawn 09/14/2024 BMI 24.0-24.9, adult (ICD-10 - Z68.24) Plan Of Treatment No Information Insurance Providers Payer Name Payer Address Payer Phone Subscriber Number Group Number Insured Name Patient Relationship to Insured Coverage Start Date Coverage End Date [employer] -Medicaid [address] [address] [place] [phone] [id number] Kianna Helm Self - patient is the insured Medicaid of [place] [employer] [facility] [address] [place] [id number] Kianna Helm Self - patient is the insured Medical (General) History Medical History History ICD Code restless legs Numbness in legs back pain abnormal paps presistant cough sinus issues bloating Hemorrhoids nervousness forgetfulness seasonal allergies Surgical History Surgery Date(Month/Year) no past surgical history Hospitalization History Reason Date(Month/Year) No past hospitalizations
--- OUTSIDE RECORDS SUMMARY | 2025-02-27 07:39 | XMS_ITS | Clinical Summary ---
Author Organization [facility] Address [address] [place] [address] Care Team Providers Care Pathology Secretary Name Role Phone Maurilio Alvarado MD Primary Care Provider + [phone] Family History Medical History Relation Name Comments Hypertension Mother Relation Name Status Comments Mother Social History Tobacco Use Types Packs/Day Years Used Date Smoking Tobacco: Every Day Alcohol Use Standard Drinks/Week Comments No 0 (1 standard drink = 0.6 oz pur e alcohol) Comments Unknown Sex and Gender Information Value Date Recorded Sex Assigned at Not on file Legal Sex Female 8:39 PM EDT Gender Identity Not on file Sexual Orientation Not on file Last Filed Vital Signs Vital Sign Reading Time Taken Comments Blood Pressure - - Pulse - - Temperature - - Respiratory Rate - - Oxygen Saturation - - Inhaled Oxygen Concentration - - Weight 70.3 kg (155 lb 0.1 oz) 03/28/2014 1:09 P M EDT Height 170.2 cm (5' 7 ) 03/28/2014 1:09 PM EDT Body Mass Index 24.28 03/28/2014 1:09 PM EDT Plan of Treatment Not on file Care Teams Pathology Secretary Relationship Specialty Start Date End Date Maurilio Alvarado MD [address] [place] [address] PCP - General 01/03/21
[2025-02-28 09:14] LABS: Hepatitis B Surface Antigen Negative (Negative)
== END 2025-02-26 23:59 | disposition home or self-care (01) ==
LOC: LAB.DROPOF 02-27 07:37
PROVIDERS: PCP Family Medicine; Visit Provider Family Medicine
DX: G62.9 Polyneuropathy, unspecified (principal); E55.9 Vitamin D deficiency, unspecified; R53.83 Other fatigue; Z11.59 Encounter for screening for other viral diseases
CPT/HCPCS: 80053; 80061; 80074; 82306; 83036; 84443; 85025; 87340; 87389